=== PATIENT | female | born 1980 | race Caucasian/White ===

== ENCOUNTER 2024-08-18 00:34 | Emergency (ER) | payer BC, OTHER ==
[2024-08-18 00:42] VITALS: RESP 18; TEMP 98.4
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
[2024-08-18] MEDS: ACET/COD 300 MG/30 MG STARTER PACK 6 TAB BTL PO STA (01:52)
[2024-08-18 02:08] VITALS: BP 126/59; PULSE 61
== END 2024-08-18 01:57 | disposition home or self-care (01) ==
LOC: EC 00:34
CPT/HCPCS: 93970; 99283

== ENCOUNTER → 2024-08-27 | Outpatient (CLI) | payer OTHER ==
--- NOTE | 2024-08-27 23:12 | MR ---
EXAMINATION TYPE: MR knee LT wo con DATE OF EXAM: 08/27/2024 COMPARISON: NONE HISTORY: Left knee pain after injury one week ago. M25.562 TECHNIQUE: Multiplanar, multisequence images of the knee is performed without IV contrast. FINDINGS: MEDIAL MENISCUS: Anterior and posterior horns are intact without tear. LATERAL MENISCUS: Anterior and posterior horns are intact without tear. CRUCIATE LIGAMENTS: The anterior and posterior cruciate ligaments are intact and unremarkable. COLLATERAL LIGAMENTS: The medial collateral ligament is intact and unremarkable. Increased signal wit hin the lateral collateral ligament complex proximal portion most prominent involving the iliotibial band. EXTENSOR MECHANISM: Visualized quadriceps and patellar tendons are intact. EFFUSION: Moderate to large size suprapatellar joint effusion. POPLITEAL CYST: No popliteal/zapata cyst. TRICOMPARTMENT SPACES: Severe narrowing patellofemoral compartment. No significant spurring. CARTILAGE: Significant chondromalacia patella along the inferior aspect of the posterior patellar chaim e with full-thickness loss seen. BONE MARROW SIGNAL: Heterogeneous increased T2 signal involving the inferior medial aspect of the pat patricia. Some heterogeneous increased T2 signal in the anterior central tibia. Linear diminished T1 sign al involving the fibular head seen best on coronal image 24 with surrounding T2 hyperintense signal. OTHER: No additional significant abnormality is appreciated. IMPRESSION: 1. There is acute partial tearing of the proximal portion of the lateral collateral ligament complex. 2. Moderate to large-size suprapatellar joint effusion. 3. Subtle acute nondisplaced fracture of the fibular head with surrounding osseous contusion injury. 4. Asymmetric severe patellofemoral joint arthropathy. [facility], , 08/27/2024 11:09 PM
== END | disposition home or self-care (01) ==
LOC: RADMRIMAIN 21:45
PROVIDERS: ATTEND Orthopaedic Surgery
DX: S80.02XA Contusion of left knee, initial encounter (principal); M25.562 Pain in left knee; M25.462 Effusion, left knee